=== PATIENT | female | born 1945 | race Caucasian/White ===

== ENCOUNTER 2017-10-12 09:22 | Day surgery (SDC) | payer MEDICARE, BC ==
[2017-10-12] MEDS ORDERED: LACTATED RINGERS 1,000 ML IV ONE (10:17)
[2017-10-12] MEDS ORDERED: MIDAZOLAM 2 MG/2 ML VIAL IVP ONE (10:49)
[2017-10-12] MEDS ORDERED: fentaNYL 100 MCG/2 ML VIAL IVP ONE (10:49)
[2017-10-12 11:45] VITALS: BP 142/66
== END 2017-10-12 09:23 | disposition home or self-care (01) ==
LOC: SDS 09:22
PROVIDERS: ATTEND Surgery
PROC: 3E0H8GC Introduction of Other Therapeutic Substance into Lower GI, Via Natural or Artificial Opening Endoscopic (ICD-10-PCS; 2017-10-12)
PROC: 0DBH8ZX Excision of Cecum, Via Natural or Artificial Opening Endoscopic, Diagnostic (ICD-10-PCS; principal; 2017-10-12 10:30)
DX: D12.0 Benign neoplasm of cecum (principal); K64.8 Other hemorrhoids
CPT/HCPCS: 45381; 45385; J7120

== ENCOUNTER 2018-12-19 12:39 | Outpatient (CLI) | payer MEDICARE, BC | END 2018-12-19 12:40 | disposition home or self-care (01) | LOC: DI 12:39 | PROVIDERS: ATTEND Specialist | DX: R55 Syncope and collapse (principal); I07.1 Rheumatic tricuspid insufficiency | CPT/HCPCS: 93306 ==

== ENCOUNTER 2018-12-22 12:10 | Outpatient (CLI) | payer MEDICARE, BC ==
--- NOTE | 2018-12-23 15:47 | XRAY Report ---
Reason: ACUTE LBP,TWISTING/LOFT,HX OF OSTEOPOSTOSIS Procedure Date: 12/22/2018 Accession Number: [id number] / [id number] Procedure: XR - Thoracic Spine 2 View CPT Code: FULL RESULT: EXAM: THORACIC SPINE RADIOGRAPHY EXAM DATE: 12/22/2018 01:00 PM. CLINICAL HISTORY: ACUTE LBP,TWISTING/LOFT,HX OF OSTEOPOROSIS. COMPARISON: None. TECHNIQUE: 2 views. FINDINGS: Alignment: No spondylolisthesis or scoliosis. Bones: Moderate anterior compression fracture in the T9 and T12 visualized. Disks: Disk heights are maintained. Soft Tissues: There is a clip in the left atrial appendage. Status post CABG without cardiomegaly is noted. The visualized lungs are within normal limits. IMPRESSION: Moderate anterior compression fracture in the T9 and T12, uncertain age or etiology. RADIA
--- NOTE | 2018-12-23 15:52 | XRAY Report ---
Reason: ACUTE LBP,TWISTING/LOFT,HX OF OSTEOPOSTOSIS Procedure Date: 12/22/2018 Accession Number: [id number] / [id number] Procedure: XR - Lumbar Spine 2 View CPT Code: FULL RESULT: EXAM: LUMBOSACRAL SPINE RADIOGRAPHY EXAM DATE: 12/22/2018 12:58 PM. CLINICAL HISTORY: ACUTE LBP,TWISTING/LOFT,HX OF OSTEOPOROSIS. COMPARISONS: None. TECHNIQUE: 3 views. FINDINGS: Alignment: No spondylolisthesis or scoliosis. Bones: Five [id number] lumbar vertebral bodies are present. No lumbar spine or sacral fractures or bone lesions. Disks: Disk heights are maintained. Facets: No degenerative changes. Sacroiliac Joints: Unremarkable. Soft Tissues: The visualized bowel gas pattern is normal. IMPRESSION: Negative for fracture, spondylolisthesis or significant degenerative disk disease in lumbar spine. RADIA
== END 2018-12-22 12:11 | disposition home or self-care (01) ==
LOC: DI 12:10
PROVIDERS: ATTEND Family Medicine
DX: M54.5 Low back pain (principal); M81.0 Age-related osteoporosis without current pathological fracture; S22.079A Unspecified fracture of T9-T10 vertebra, initial encounter for closed fracture; S22.089A Unspecified fracture of T11-T12 vertebra, initial encounter for closed fracture
CPT/HCPCS: 72070; 72100

== ENCOUNTER 2019-07-11 13:36 | Outpatient (CLI) | payer MEDICARE, BC ==
--- NOTE | 2019-07-12 08:34 | Mammography Report ---
Reason: SCREENING MAMMO Procedure Date: 07/11/2019 Accession Number: [id number] / [id number] Procedure: GERMAINE - Screening Mammo w/Sánchez CPT Code: FULL RESULT: EXAM: Screening Mammo w/Sánchez DATE: 07/11/2019 2:21 PM CLINICAL HISTORY: Screening encounter. TECHNIQUE: (B) - Bilateral CC, laterally exaggerated CC, MLO views were obtained. COMPARISON: 05/16/2014 through 11/13/2009. PARENCHYMAL PATTERN: (A) - The breast(s) demonstrate(s) scattered fibroglandular densities. FINDINGS: A pacemaker is seen against the left chest wall. The right lateral breast isodense nodule which is a well-circumscribed and demonstrates a fatty hilum on 3-D images is stable, typically benign intramammary lymph node. There are no suspicious masses, calcifications, or areas of distortion. IMPRESSION: Benign findings. BI-RADS category 2. RECOMMENDATION: (ANNUAL) - Recommend routine annual screening mammography. BI-RADS CATEGORY: (2) - Benign Findings. STANDARD QUALIFYING STATEMENTS: 1. This examination was not reviewed with the aid of Computer-Aided Detection (CAD). 2. A negative or benign imaging report should not preclude biopsy if clinically suspicious findings are present. 3. Dense breasts may obscure an underlying neoplasm. 4. This examination was reviewed with the aid of 3D breast imaging (tomosynthesis).
== END 2019-07-11 13:37 | disposition home or self-care (01) ==
LOC: DI 13:36
PROVIDERS: ATTEND Family Medicine
DX: Z12.31 Encounter for screening mammogram for malignant neoplasm of breast (principal); Z95.0 Presence of cardiac pacemaker
CPT/HCPCS: 77063; 77067

== ENCOUNTER 2019-07-11 13:37 | Outpatient (CLI) | payer MEDICARE, BC ==
--- NOTE | 2019-07-12 08:47 | DEXA Report ---
Reason: ENCOUNTER FOR SCREENING FOR OSTEOPOROSIS Procedure Date: 07/11/2019 Accession Number: [id number] / [id number] Procedure: DEX - Dexa Spine and/or Hip CPT Code: FULL RESULT: EXAM: Dexa Spine and/or Hip DATE: 07/11/2019 2:30 PM CLINICAL HISTORY: ENCOUNTER FOR SCREENING FOR OSTEOPOROSIS TECHNIQUE: Dual energy x-ray absorptiometry (DXA) was performed on a [employer] System. Regions measured are the AP Spine, femoral neck, and if needed forearm. COMPARISON: None. In accordance with the International Society for Clinical Densitometry (ISCD) guidelines, data from previous exams may be reanalyzed using current recommendations and techniques. This is done to allow a more accurate basis for comparison with the current study. FINDINGS: The data for the lumbar spine is as follows: BMD (g/cm/cm) T-SCORE Z-SCORE REGION L1 0.756 -3.1 -1.1 L2 0.804 -3.3 -1.3 L3 0.825 -3.1 -1.1 L4 0.823 -3.1 -1.1 TOTAL 0.805 -3.1 -1.1 NOTE: All evaluable vertebrae are used for classification The data for the hip is as follows: BMD (g/cm/cm) T-SCORE Z-SCORE REGION Neck 0.572 -3.4 -1.2 TOTAL 0.555 -3.6 -1.6 NOTE: The femoral neck or total proximal femur, whichever is lowest, is used for classification. IMPRESSION: THE WHO CLASSIFICATION BASED ON THE INTERNATIONAL REFERENCE STANDARD IS OSTEOPOROSIS. THE FRACTURE RISK IS HIGH. RECOMMENDATION: Patients with diagnosis of osteoporosis or osteopenia should have regular bone mineral density assessment. For those eligible for Medicare, routine testing is allowed once every 2 years. Testing frequency can be increased for patients who have rapidly progressing disease or for those who are receiving medical therapy to restore bone mass. COMMENT: World Health Organization (WHO) definitions for osteoporosis and osteopenia: NORMAL BMD: T-score at -1.0 or higher, fracture risk is low OSTEOPENIA BMD: T-score between -1.0 and -2.5, fracture risk is increased. OSTEOPOROSIS BMD: T-score at -2.5 or lower, fracture risk is high. National Osteoporosis Foundation recommends: 1. Obtain adequate dietary calcium (at least 1200 mg per day) and vitamin D (400-800 international units per day). 2. Participate, as appropriate, in regular weightbearing and muscle-strengthening exercise. 3. Avoid tobacco use and reduce alcohol and caffeine intake. 4. For more detailed information see the website at www.NOF.org.
== END 2019-07-11 13:38 | disposition home or self-care (01) ==
LOC: DI 13:37
PROVIDERS: ATTEND Family Medicine
DX: Z13.820 Encounter for screening for osteoporosis (principal); M81.0 Age-related osteoporosis without current pathological fracture; N95.8 Other specified menopausal and perimenopausal disorders
CPT/HCPCS: 77080

== ENCOUNTER 2022-04-07 12:46 | Outpatient (CLI) | payer MEDICARE, BC ==
--- NOTE | 2022-04-07 16:24 | DEXA Report ---
PROCEDURE: Dexa Spine and/or Hip INDICATIONS: OSTEOPOROSIS TECHNIQUE: Dual energy x-ray absorptiometry (DXA) was performed on a [employer] System. Regions measur ed are the AP Spine, femoral neck, and if needed forearm. COMPARISON: 07/11/2019. FINDINGS: Lumbar Spine: Bone Mineral Density 0.720 g/cm/cm,T score -3.8. There is interval 10.6% decrease in total lumbar spine bone mineral density. Left Hip: Bone Mineral Density 0.537 g/cm/cm,T score -3.7. There is interval 3.2% decrease in total left hip b one mineral density. Left Femoral Neck: Bone Mineral Density 0.530 g/cm/cm, T score -3.7. (T score greater or equal to -1.0: NORMAL) (T score from -1.1 to -2.4: OSTEOPENIA) (T score less than or equal to -2.5 to: OSTEOPOROSIS) Impression: Osteoporosis. Patients with diagnosis of osteoporosis or osteopenia should have regular bone mineral density assess ment. For those eligible for Medicare, routine testing is allowed once every 2 years. Testing frequ ency can be increased for patients who have rapidly progressing disease or for those who are receivin g medical therapy to restore bone mass. Reviewed by: Bandar Fountain MD on 04/07/2022 4:23 PM PDT Approved by: Bandar Fountain MD on 04/07/2022 4:23 PM PDT Station ID: [id number]
== END 2022-04-07 12:47 | disposition home or self-care (01) ==
LOC: DI 12:46
PROVIDERS: ATTEND Family Medicine
DX: M81.0 Age-related osteoporosis without current pathological fracture (principal); Z78.0 Asymptomatic menopausal state

== ENCOUNTER 2023-04-06 13:26 | Outpatient (CLI) | payer MEDICARE, BC ==
[2023-04-06] MEDS ORDERED: ALBUTEROL 1 PUFF INH STA (17:21)
== END 2023-04-06 13:27 | disposition home or self-care (01) ==
LOC: RT 13:26
PROVIDERS: ATTEND Physician Assistant
DX: R05.3 Chronic cough (principal); R06.02 Shortness of breath
CPT/HCPCS: 94060; 94727; 94729

== ENCOUNTER 2023-04-12 19:23 | Outpatient (CLI) | payer MEDICARE, BC ==
--- NOTE | 2023-04-13 10:01 | XRAY Report ---
PROCEDURE: Chest 2 View X-Ray INDICATIONS: GOITER, COUGH SOB TECHNIQUE: 2 views of the chest were acquired. COMPARISON: None. FINDINGS: Surgical changes and devices: Prior CABG. Atrial appendage clip. Intravenous leads projected over th e appropriate positions. Lungs and pleura: No pleural effusions or pneumothorax. Lungs are clear. Mediastinum: Mediastinal contours appear normal. Heart size is normal. Small hiatal hernia. Bones and chest wall: No suspicious bony lesions. Overlying soft tissues appear unremarkable. Sta ble compression deformities of the T11 and T8 vertebral bodies. IMPRESSION: No acute cardiopulmonary process. Stable thoracic compression deformities. Reviewed by: Toribio Manzanares on 04/13/2023 9:59 AM PDT Approved by: Toribio Manzanares on 04/13/2023 9:59 AM PDT Station ID: [id number]
--- NOTE | 2023-04-13 13:22 | Ultrasound Report ---
PROCEDURE: Head or Neck Soft Tissue INDICATIONS: GOITER,COUGH SOB TECHNIQUE: Real-time scanning was performed of the thyroid gland, with image documentation. COMPARISON: None FINDINGS: Right: Thyroid lobe measures 2.8 x 0.5 x 0.7 cm, and is heterogeneous in echotexture. Left: Thyroid lobe measures 2.3 x 0.7 x 0.8 cm, and is heterogeneous in echotexture. Isthmus: 1.5 mm thick. No discrete thyroid nodule is seen. No neck soft tissue lymphadenopathy. IMPRESSION: Atrophic-appearing thyroid nodule with diffusely heterogeneous thyroid parenchymal echot exture. No discrete thyroid nodule or neck soft tissue lymphadenopathy is seen. ACR TI-RADS definitions and recommendations: TI-RADS 1 (benign): 0 points. FNA not needed. TI-RADS 2 (not suspicious): 2 points. FNA not needed. TI-RADS 3 (mildly suspicious): 3 points. "FNA if 2.5 cm or larger, follow up if 1.5 cm or larger (at 1, 3, and 5 years). TI-RADS 4 (moderately suspicious): 4-6 points. "FNA if 1.5 cm or larger, follow up if 1 cm or larger (at 1, 2, 3, and 5 years). TI-RADS 5 (highly suspicious): 7 points or more. "FNA if 1 cm or larger, follow up if 0.5 cm or larger (every year for 5 years). Reviewed by: Bandar Fountain MD on 04/13/2023 12:20 PM ISATU Approved by: Bandar Fountain MD on 04/13/2023 12:20 PM AKPORSHA Station ID: [id number]
== END 2023-04-12 19:24 | disposition home or self-care (01) ==
LOC: DI 19:23
PROVIDERS: ATTEND Physician Assistant
DX: E04.1 Nontoxic single thyroid nodule (principal); R05.3 Chronic cough; R06.02 Shortness of breath; M43.8X4 Other specified deforming dorsopathies, thoracic region